=== PATIENT | female | born 1935 | race Caucasian/White ===

== ENCOUNTER 2021-04-16 12:29 | Inpatient (IN) ==
[2021-04-16] MEDS ORDERED: 0.9 % Sodium Chloride 1,000 ML IVC ONE (12:36)
[2021-04-16] MEDS ORDERED: Ampicillin/Sulbactam 3,000 MG in 0.9 % Sodium Chloride Mini Bag 100 ML IVPB ONE (12:39)
[2021-04-16] MEDS ORDERED: Tdap (Boostrix) Vaccine 0.5 ML SYRINGE IM ONE (12:39)
[2021-04-16] MEDS ORDERED: Clindamycin 600 MG/50 ML 600 MG/50 ML IV.SOLN IVPB ONE (12:42)
[2021-04-16] MEDS ORDERED: WATER IVPB ONE (12:43)
[2021-04-16] MEDS ORDERED: D5 IVPB ONE (12:43)
[2021-04-16] MEDS ORDERED: TRIMETH IVPB ONE (12:43)
[2021-04-16] MEDS ORDERED: SULFAMETHOXAZOLE IVPB ONE (12:43)
[2021-04-16 13:32] LABS: Basophils % 0.1 %; Hematocrit 36.6 % (35.3-44.9); Hemoglobin 11.7 g/dL (11.5-15.4); INR 1.1; Immature Granulocytes % 0.6 % (0-4); Lymphocytes # 0.5 K/mcL (0.6-4.6); Lymphocytes % 3.3 %; Mean Corpuscular Hemoglobin 29.8 pg (28.0-33.3); Mean Corpuscular Volume 93.1 fL (83.0-100.0); Mean Platelet Volume 10.3 fL (9.4-12.4); Monocytes # 0.9 K/mcL (0.0-1.3); Monocytes % 6.2 %; Neutrophils # 12.7 K/mcL (1.6-8.9); Platelet Count 114 K/mcL (140-400); Prothrombin Time 12.4 Seconds (9.4-12.1); Red Blood Count 3.93 M/mcL (3.82-4.97); Red Cell Distribution Width 12.6 % (11.5-14.5); Segmented Neutrophils % 89.8 %; White Blood Count 14.1 K/mcL (4.3-11.1)
[2021-04-16 13:32] LABS: Bilirubin,Urine Negative (Negative); Blood,Urine Small (Negative); Clarity,Urine Clear (Clear); Color,Urine Yellow (Yellow); Glucose,Urine (UA) Normal (Normal); Ketones,Urine 40 mg/dL (Negative); Leukocyte Esterase,Urine Negative (Negative); Nitrite,Urine Negative (Negative); Protein,Urine Negative (Neg-Trace); Specific Gravity,Urine 1.025 (1.010-1.025); Urobilinogen,Urine Normal (Normal)
[2021-04-16 13:35] LABS: Activated Partial Thrombo Time 32.4 Seconds (26.0-36.0)
[2021-04-16 13:38] LABS: Mucus,Urine Few per lpf (None-Few); Squamous Epithelial Cell,Urine Few per hpf (None-Few); WBC,Urine 0-3 per hpf (0-3)
[2021-04-16 13:39] LABS: Alanine Aminotransferase 26 Units/L (7-52); Albumin 4.3 g/dL (3.5-5.7); Albumin/Globulin Ratio 1.8 (1.1-2.2); Alkaline Phosphatase 50 Units/L (34-104); Aspartate Amino Transferase 30 Units/L (13-39); BUN/Creatinine Ratio 18 (6-26); Bilirubin,Direct 0.2 mg/dL (0.0-0.2); Bilirubin,Indirect 0.9 mg/dL (0.0-1.0); Bilirubin,Total 1.1 mg/dL (0.3-1.0); Blood Urea Nitrogen 13 mg/dL (8-23); Calcium 8.9 mg/dL (8.6-10.3); Carbon Dioxide 27 mEq/L (23-29); Chloride 103 mEq/L (98-107); Globulin 2.4 g/dL (2.4-3.5); Glucose 130 mg/dL (70-105); Magnesium 1.6 mg/dL (1.6-2.6); Osmolality,Calculated 288 (280-300); Potassium 3.6 mEq/L (3.5-5.1); Sodium 138 mEq/L (136-145); Total Protein 6.7 g/dL (6.4-8.9); Troponin I 0.03 ng/mL (< 0.04); eGFR For African Americans > 60 (> 60); eGFR For Non-African Americans > 60 (> 60)
[2021-04-16] MEDS ORDERED: Sulfamethoxazole/Trimeth 17 ML in D5% in Water 500 ML IVPB ONE (14:00)
[2021-04-16] MEDS ORDERED: Melatonin 3 MG TABLET PO PRN (15:47)
[2021-04-16] MEDS ORDERED: Naloxone 0.4 MG/ML INJ IVP PRN (15:47)
[2021-04-16] MEDS ORDERED: Ondansetron ODT 4 MG TAB.RAPDIS SL PRN (15:47)
[2021-04-16] MEDS ORDERED: Acetaminophen 325 MG TABLET PO PRN (15:47)
[2021-04-16] MEDS: 0.9 % Sodium Chloride 1,000 ML IVC SCH (17:31)
[2021-04-17] MEDS: 0.9 % Sodium Chloride 1,000 ML IVC SCH (00:13)
[2021-04-17] MEDS: Ampicillin/Sulbactam 3,000 MG in 0.9 % Sodium Chloride Mini Bag 100 ML IVPB SCH ×4 (00:14→17:28)
[2021-04-17 02:42] LABS: Hematocrit 29.3 % (35.3-44.9); Hemoglobin 9.5 g/dL (11.5-15.4); Immature Platelets 3.8 % (1.1-6.1); Mean Corpuscular HGB Conc 32.4 g/dL (31.6-35.5); Mean Corpuscular Hemoglobin 29.9 pg (28.0-33.3); Mean Corpuscular Volume 92.1 fL (83.0-100.0); Mean Platelet Volume 10.2 fL (9.4-12.4); Red Blood Count 3.18 M/mcL (3.82-4.97); Red Cell Distribution Width 12.6 % (11.5-14.5); White Blood Count 10.8 K/mcL (4.3-11.1)
[2021-04-17 02:53] LABS: BUN/Creatinine Ratio 14 (6-26); Blood Urea Nitrogen 10 mg/dL (8-23); Calcium 7.8 mg/dL (8.6-10.3); Carbon Dioxide 24 mEq/L (23-29); Chloride 107 mEq/L (98-107); Glucose 109 mg/dL (70-105); Osmolality,Calculated 286 (280-300); Potassium 3.1 mEq/L (3.5-5.1); Sodium 138 mEq/L (136-145); eGFR For African Americans > 60 (> 60); eGFR For Non-African Americans > 60 (> 60)
[2021-04-17] MEDS: Furosemide 20 MG TABLET PO SCH (09:50)
[2021-04-17] MEDS ORDERED: QUEtiapine Fumarate 25 MG TABLET PO SCH (17:12)
[2021-04-17] MEDS: QUEtiapine Fumarate 25 MG TABLET PO SCH (17:28)
[2021-04-17] MEDS ORDERED: diazePAM 10 MG/2 ML SYRINGE IVP ONE (20:37)
[2021-04-18] MEDS: Ampicillin/Sulbactam 3,000 MG in 0.9 % Sodium Chloride Mini Bag 100 ML IVPB SCH ×5 (00:05→23:34)
[2021-04-18] MEDS: QUEtiapine Fumarate 25 MG TABLET PO SCH ×2 (09:25→19:58)
[2021-04-18] MEDS: Furosemide 20 MG TABLET PO SCH (09:25)
[2021-04-18 11:47] LABS: Hemoglobin 9.9 g/dL (11.5-15.4); Red Cell Distribution Width 12.5 % (11.5-14.5)
[2021-04-18 11:48] LABS: Hematocrit 30.5 % (35.3-44.9); Mean Corpuscular HGB Conc 32.5 g/dL (31.6-35.5); Mean Corpuscular Hemoglobin 29.4 pg (28.0-33.3); Mean Corpuscular Volume 90.5 fL (83.0-100.0); Red Blood Count 3.37 M/mcL (3.82-4.97); White Blood Count 8.8 K/mcL (4.3-11.1)
[2021-04-18 12:00] LABS: BUN/Creatinine Ratio 17 (6-26); Blood Urea Nitrogen 11 mg/dL (8-23); Calcium 8.1 mg/dL (8.6-10.3); Carbon Dioxide 27 mEq/L (23-29); Chloride 105 mEq/L (98-107); Glucose 109 mg/dL (70-105); Osmolality,Calculated 286 (280-300); Potassium 3.5 mEq/L (3.5-5.1); Sodium 138 mEq/L (136-145); eGFR For African Americans > 60 (> 60); eGFR For Non-African Americans > 60 (> 60)
[2021-04-19] MEDS: Ampicillin/Sulbactam 3,000 MG in 0.9 % Sodium Chloride Mini Bag 100 ML IVPB SCH (05:38)
[2021-04-19 06:04] LABS: Hematocrit 31.4 % (35.3-44.9); Hemoglobin 10.3 g/dL (11.5-15.4); Mean Corpuscular HGB Conc 32.8 g/dL (31.6-35.5); Mean Corpuscular Hemoglobin 30.2 pg (28.0-33.3); Mean Corpuscular Volume 92.1 fL (83.0-100.0); Mean Platelet Volume 10.1 fL (9.4-12.4); Platelet Count 113 K/mcL (140-400); Red Blood Count 3.41 M/mcL (3.82-4.97); Red Cell Distribution Width 12.8 % (11.5-14.5); White Blood Count 6.7 K/mcL (4.3-11.1)
[2021-04-19] MEDS: QUEtiapine Fumarate 25 MG TABLET PO SCH (09:12)
[2021-04-19] MEDS: Furosemide 20 MG TABLET PO SCH (09:12)
[2021-04-19 11:17] VITALS: BP 112/63; PULSE 96; TEMP 97.8; O2SAT 95
== END 2021-04-19 14:10 | disposition home health service (06) | DRG 871 ==
LOC: EMEROOARM 12:29 → 3BNU 12:29 → SUATTDRO 17:58
PROVIDERS: ADMIT Internal Medicine; ATTEND Internal Medicine

== ENCOUNTER 2021-11-08 20:33 | Inpatient (IN) ==
[2021-11-08] MEDS ORDERED: Iopamidol - 370 500 ML MLS IVP ONE (21:24)
[2021-11-08] MEDS ORDERED: Morphine Sulfate 2 MG/ML SYRINGE IVP ONE (21:43)
[2021-11-08 22:11] LABS: Bilirubin,Urine Negative (Negative); Blood,Urine Negative (Negative); Clarity,Urine Clear (Clear); Color,Urine Yellow (Yellow); Glucose,Urine (UA) Normal (Normal); Hyaline Casts,Urine Few per lpf (None Seen); Ketones,Urine Negative (Negative); Leukocyte Esterase,Urine Large (Negative); Mucus,Urine Few per lpf (None-Few); Nitrite,Urine Negative (Negative); PH,Urine 6.5 pH Units (5.0-8.0); Protein,Urine Trace mg/dL (Neg-Trace); Renal Epithelial Cells,Urine Few per hpf (None-Few); Specific Gravity,Urine 1.021 (1.010-1.025); Squamous Epithelial Cell,Urine Few per hpf (None-Few); Transitional Epi Cells,Urine Few per hpf (None-Few); Urobilinogen,Urine Normal (Normal); WBC,Urine TNTC per hpf (0-3)
[2021-11-08 22:12] LABS: Basophils % 0.2 %; Eosinophils % 0.8 %; Hematocrit 33.1 % (35.3-44.9); Hemoglobin 10.9 g/dL (11.5-15.4); Immature Granulocytes % 0.6 % (0-4); Lymphocytes # 1.1 K/mcL (0.6-4.6); Lymphocytes % 21.9 %; Mean Corpuscular HGB Conc 32.9 g/dL (31.6-35.5); Mean Platelet Volume 9.6 fL (9.4-12.4); Monocytes # 0.5 K/mcL (0.0-1.3); Monocytes % 9.5 %; Neutrophils # 3.2 K/mcL (1.6-8.9); Platelet Count 123 K/mcL (140-400); Red Blood Count 3.52 M/mcL (3.82-4.97); Red Cell Distribution Width 12.9 % (11.5-14.5); White Blood Count 4.8 K/mcL (4.3-11.1)
[2021-11-08 22:20] LABS: INR 1.1; Prothrombin Time 12.2 Seconds (9.4-12.1)
[2021-11-08 22:29] LABS: BUN/Creatinine Ratio 20 (6-26); Blood Urea Nitrogen 19 mg/dL (8-23); Calcium 8.8 mg/dL (8.6-10.3); Carbon Dioxide 29 mEq/L (23-29); Chloride 107 mEq/L (98-107); Glucose 112 mg/dL (70-105); Osmolality,Calculated 295 (280-300); Potassium 3.7 mEq/L (3.5-5.1); Sodium 141 mEq/L (136-145); Troponin I < 0.03 ng/mL (< 0.04)
[2021-11-08 22:43] LABS: Thyroid Stimulating Hormone 1.403 mcIU/mL (0.340-5.600)
[2021-11-09] MEDS ORDERED: cefTRIAXone 1,000 MG in 0.9 % Sodium Chloride 10 ML IVP ONE (00:47)
[2021-11-09] MEDS ORDERED: Naloxone 0.4 MG/ML INJ IVP PRN ×2 (02:14→14:51)
[2021-11-09] MEDS ORDERED: Ondansetron 4 MG/2 ML VIAL IVP PRN ×3 (02:19→14:51)
[2021-11-09] MEDS ORDERED: Melatonin 3 MG TABLET PO PRN (02:19)
[2021-11-09] MEDS ORDERED: 0.9 % Sodium Chloride 1,000 ML IVC SCH (02:30)
[2021-11-09] MEDS ORDERED: cefTRIAXone 1,000 MG in 0.9 % Sodium Chloride Mini Bag 100 ML IVPB SCH (09:00)
[2021-11-09] MEDS ORDERED: *HR* OxyCODONE Immed Rel 5 MG TABLET PO PRN (10:41)
[2021-11-09] MEDS ORDERED: *HR* FentaNYL (PF) 100 MCG/2 ML VIAL IVP PRN (10:41)
[2021-11-09] MEDS ORDERED: *HR* HYDROmorphone PF 0.5 MG/0.5 ML SYRINGE IVP PRN (10:41)
[2021-11-09] MEDS ORDERED: *HR* OxyCODONE Immed Rel 5 MG TABLET PO ONE ×2 (10:41→12:45)
[2021-11-09] MEDS ORDERED: CeFAZolin Syr 2,000MG/20 ML 2,000 MG/20 ML SYRINGE IVPB ONE (12:26)
[2021-11-09] MEDS ORDERED: Ringers Solution, Lactated 1,000 ML IVC SCH ×2 (12:30→14:51)
[2021-11-09] MEDS ORDERED: ROPIVACAINE/PF/NS 0.25% 1 EACH SYRINGE INTRAART ONE ×2 (12:32→12:58)
[2021-11-09] MEDS ORDERED: *HR* Rocuronium Bromide 50 MG/5 ML VIAL ONE (14:20)
[2021-11-09] MEDS ORDERED: Lidocaine -MPF 2% 5 ML VIAL ONE (14:20)
[2021-11-09] MEDS ORDERED: *HR* FentaNYL (PF) 100 MCG/2 ML VIAL ONE (14:20)
[2021-11-09] MEDS ORDERED: Lidocaine HCL 4 ML Topical Solution (Laryng-O-Jet Kit Sterile Pak) TP ONE (14:20)
[2021-11-09] MEDS ORDERED: *HR* Succinylcholine 200 MG/10 ML VIAL IVP ONE (14:20)
[2021-11-09] MEDS ORDERED: Ondansetron 4 MG/2 ML VIAL ONE (14:20)
[2021-11-09] MEDS ORDERED: *HR* Propofol 200 MG/20 ML VIAL IVP ONE (14:20)
[2021-11-09] MEDS ORDERED: Vancomycin 1,000 MG VIAL ONE (14:30)
[2021-11-09] MEDS ORDERED: TOTAL JOINT MIXTURE (100ML) INTRAART ONE (14:45)
[2021-11-09] MEDS ORDERED: Povidone-Iodine 45 ML, Sodium Chloride IRRigation 1,000 ML IR ONE (14:45)
[2021-11-09] MEDS ORDERED: Sennosides 8.6 MG TABLET PO PRN (14:51)
[2021-11-09] MEDS ORDERED: *HR* Promethazine 25 MG/ML VIAL IM PRN (14:51)
[2021-11-09] MEDS ORDERED: MOM Conc 10 ML UD.LIQ PO PRN (14:51)
[2021-11-09] MEDS ORDERED: Tranexamic Acid 1,000 MG/10 ML VIAL ONE (15:07)
[2021-11-09] MEDS ORDERED: EPHEDrine sulfate 50 MG/10 ML VIAL IVP ONE (15:43)
[2021-11-09] MEDS ORDERED: Sugammadex Sodium 200 MG/2 ML VIAL IV ONE (15:48)
[2021-11-09] MEDS: Ascorbic Acid 500 MG TABLET PO SCH (17:58)
[2021-11-09] MEDS: CeFAZolin 2 GM/120 ML BAG IVPB SCH (19:42)
[2021-11-10 05:32] LABS: Eosinophils % 0.1 %; Hematocrit 26.1 % (35.3-44.9); Immature Granulocytes % 0.3 % (0-4); Lymphocytes # 0.6 K/mcL (0.6-4.6); Lymphocytes % 8.6 %; Mean Corpuscular HGB Conc 32.6 g/dL (31.6-35.5); Mean Corpuscular Hemoglobin 30.6 pg (28.0-33.3); Mean Corpuscular Volume 93.9 fL (83.0-100.0); Mean Platelet Volume 9.7 fL (9.4-12.4); Monocytes # 0.6 K/mcL (0.0-1.3); Monocytes % 9.3 %; Neutrophils # 5.5 K/mcL (1.6-8.9); Platelet Count 106 K/mcL (140-400); Red Blood Count 2.78 M/mcL (3.82-4.97); Red Cell Distribution Width 12.8 % (11.5-14.5); Segmented Neutrophils % 81.7 %; White Blood Count 6.8 K/mcL (4.3-11.1)
[2021-11-10] MEDS: CeFAZolin 2 GM/120 ML BAG IVPB SCH (05:35)
[2021-11-10] MEDS: *HR* OxyCODONE Immed Rel 5 MG TABLET PO PRN ×2 (05:36→09:37)
[2021-11-10 06:05] LABS: Calcium 8.1 mg/dL (8.6-10.3); Potassium 3.8 mEq/L (3.5-5.1)
[2021-11-10 06:08] LABS: Hemoglobin 8.5 g/dL (11.5-15.4)
[2021-11-10] MEDS: Multivit/Ca/Min/Fe/FA 1 TAB TABLET PO SCH (09:26)
[2021-11-10] MEDS: Ascorbic Acid 500 MG TABLET PO SCH ×2 (09:26→15:51)
[2021-11-10] MEDS: Aspirin Enteric Coated 81 MG Tablet PO SCH ×2 (14:21→20:17)
[2021-11-11] MEDS ORDERED: Ringers Solution, Lactated 250 ML IVC PRN (03:19)
[2021-11-11 04:38] LABS: Hemoglobin 7.4 g/dL (11.5-15.4); Mean Corpuscular Volume 93.4 fL (83.0-100.0)
[2021-11-11 04:40] LABS: Eosinophils # 0.1 K/mcL (0.0-0.6); Eosinophils % 0.9 %; Hematocrit 22.5 % (35.3-44.9); Immature Granulocytes % 0.5 % (0-4); Immature Platelets 3.2 % (1.1-6.1); Lymphocytes # 0.6 K/mcL (0.6-4.6); Lymphocytes % 10.8 %; Mean Corpuscular HGB Conc 32.9 g/dL (31.6-35.5); Mean Corpuscular Hemoglobin 30.7 pg (28.0-33.3); Mean Platelet Volume 9.8 fL (9.4-12.4); Monocytes # 0.6 K/mcL (0.0-1.3); Monocytes % 10.1 %; Neutrophils # 4.4 K/mcL (1.6-8.9); Red Blood Count 2.41 M/mcL (3.82-4.97); Segmented Neutrophils % 77.7 %; White Blood Count 5.7 K/mcL (4.3-11.1)
[2021-11-11 04:43] LABS: Platelet Count 90 K/mcL (140-400)
[2021-11-11 04:56] LABS: Potassium 3.4 mEq/L (3.5-5.1)
[2021-11-11] MEDS ORDERED: 0.9 % Sodium Chloride 250 ML ONE (06:26)
[2021-11-11] MEDS ORDERED: NON-FORMULARY MEDICATION 1 EACH EACH (Cyanocobalamin (Vitamin B-12) [Vitamin B-12] 100 MCG PO SCH (09:00)
[2021-11-11] MEDS ORDERED: NON-FORMULARY MEDICATION 1 EACH EACH (Vit A/Vit C/Vit E/Zinc/Copper [Preservision Areds Ta PO SCH (09:00)
[2021-11-11] MEDS: Ascorbic Acid 500 MG TABLET PO SCH (09:23)
[2021-11-11] MEDS: Aspirin Enteric Coated 81 MG Tablet PO SCH (09:23)
[2021-11-11] MEDS: Multivit/Ca/Min/Fe/FA 1 TAB TABLET PO SCH (09:23)
[2021-11-11 12:16] LABS: Hematocrit 27.2 % (35.3-44.9); Hemoglobin 8.9 g/dL (11.5-15.4)
[2021-11-11] MEDS ORDERED: Potassium Effervescent 25 MEQ TABLET.EFF PO ONE (12:29)
[2021-11-11] MEDS ORDERED: Pfizer COVID-19 VAC,BIVALENT,MRNA 30 MCG/0.3 ML VIAL IM ONE (18:00)
[2021-11-11 18:11] VITALS: TEMP 97.9; O2SAT 92
[2021-11-11 18:44] LABS: Influenza A PCR Negative (Negative); Influenza B PCR Negative (Negative); Resp. Syncytial Virus PCR Negative (Negative)
[2021-11-11 18:46] LABS: SARS-CoV-2 by PCR (In House) Negative (Negative)
[2021-11-11 19:56] VITALS: BP 122/68; PULSE 81
[2021-11-11] MEDS ORDERED: Latanoprost 2.5 ML BOTTLE BOTH EYES SCH (21:00)
[2021-11-11] MEDS ORDERED: Melatonin 3 MG TABLET PO SCH (21:00)
== END 2021-11-11 19:50 | DRG 522 ==
LOC: EMEROOARM 20:33 → 4WAOSI 20:33 → SUATTDRO 11-09 09:51
PROVIDERS: ADMIT Internal Medicine; ATTEND Hospitalist

== ENCOUNTER 2021-11-16 16:14 | Inpatient (IN) ==
[2021-11-16] MEDS ORDERED: 0.9 % Sodium Chloride 1,000 ML ONE (16:24)
[2021-11-16] MEDS ORDERED: Iopamidol - 370 500 ML MLS IVP ONE (16:33)
[2021-11-16 16:35] LABS: ABG Base Excess 2 mEq/L (-2 to 3); ABG HCO3 25 mEq/L (21-27); ABG Oxygen Saturation 98 % (95-98); ABG PCO2 32 mmHg (35-45); ABG PO2 86 mmHg (85-104); ABG TCO2 26 mEq/L (20-26)
[2021-11-16] MEDS ORDERED: 0.9 % Sodium Chloride 1,000 ML IV ONE (16:41)
[2021-11-16 17:13] LABS: Hematocrit 29.5 % (35.3-44.9); Hemoglobin 9.5 g/dL (11.5-15.4); Lymphocytes % 19.4 %; Mean Corpuscular HGB Conc 32.2 g/dL (31.6-35.5); Mean Corpuscular Hemoglobin 30.2 pg (28.0-33.3); Mean Corpuscular Volume 93.7 fL (83.0-100.0); Mean Platelet Volume 9.2 fL (9.4-12.4); Monocytes % 7.2 %; Platelet Count 244 K/mcL (140-400); Red Blood Count 3.15 M/mcL (3.82-4.97); Red Cell Distribution Width 13.3 % (11.5-14.5); Segmented Neutrophils % 69.7 %; White Blood Count 9.7 K/mcL (4.3-11.1)
[2021-11-16 17:14] LABS: Basophils % 0.2 %; Eosinophils # 0.1 K/mcL (0.0-0.6); Eosinophils % 0.5 %; Lymphocytes # 1.9 K/mcL (0.6-4.6); Monocytes # 0.7 K/mcL (0.0-1.3); Neutrophils # 6.7 K/mcL (1.6-8.9)
[2021-11-16 17:21] LABS: INR 1.2; Prothrombin Time 13.4 Seconds (9.4-12.1)
[2021-11-16 17:24] LABS: Activated Partial Thrombo Time 25.5 Seconds (26.0-36.0)
[2021-11-16] MEDS ORDERED: 0.9 % Sodium Chloride 500 ML IVC PRN (17:25)
[2021-11-16 17:35] LABS: Albumin 3.1 g/dL (3.5-5.7); Albumin/Globulin Ratio 1.1 (1.1-2.2); Bilirubin,Total 1.3 mg/dL (0.3-1.0); Globulin 2.7 g/dL (2.4-3.5); Potassium 3.8 mEq/L (3.5-5.1); Total Protein 5.8 g/dL (6.4-8.9)
[2021-11-16 17:43] LABS: Troponin I 0.14 ng/mL (< 0.04)
[2021-11-16] MEDS ORDERED: Naloxone 0.4 MG/ML INJ IVP PRN (20:28)
[2021-11-16] MEDS ORDERED: *HR* Heparin 5,000 UNIT/ML VIAL IVP ONE (20:35)
[2021-11-16] MEDS ORDERED: *HR* Heparin 5,000 UNIT/ML VIAL IVP PRN ×2 (20:35)
[2021-11-16] MEDS ORDERED: Amiodarone Premix 150 MG/100 ML BAG IVPB ONE (21:09)
[2021-11-16] MEDS ORDERED: Amiodarone Premix 360 MG/200 ML BAG IVC ONE (21:09)
[2021-11-16 21:15] LABS: Bacteria,Urine Few per hpf (None-Few); Bilirubin,Urine Negative (Negative); Blood,Urine Negative (Negative); Clarity,Urine Clear (Clear); Color,Urine Light-Yellow (Yellow); Glucose,Urine (UA) Normal (Normal); Hyaline Casts,Urine Moderate per lpf (None Seen); Ketones,Urine Negative (Negative); Leukocyte Esterase,Urine Negative (Negative); Mucus,Urine Few per lpf (None-Few); Nitrite,Urine Negative (Negative); PH,Urine 6.5 pH Units (5.0-8.0); Protein,Urine 30 mg/dL (Neg-Trace); RBC,Urine 0-3 per hpf (0-3); Specific Gravity,Urine 1.016 (1.010-1.025); Squamous Epithelial Cell,Urine Few per hpf (None-Few); Urobilinogen,Urine Normal (Normal); WBC,Urine 0-3 per hpf (0-3)
[2021-11-16 22:12] LABS: Heparin anti-factor XA UFH < 0.04 IU/mL (0.30-0.70)
[2021-11-16 22:17] LABS: D-Dimer 29960 ng/mLFEU (0-500)
[2021-11-16] MEDS: Heparin 25,000UNIT/250ML 1/2NS 25,000 UNIT/250 ML IV.SOLN IVC SCH (22:20)
[2021-11-17] MEDS ORDERED: Amiodarone Premix 360 MG/200 ML BAG IVC SCH (03:16)
[2021-11-17 04:40] LABS: Basophils % 0.1 %; Eosinophils % 0.3 %; Hematocrit 26.8 % (35.3-44.9); Hemoglobin 8.6 g/dL (11.5-15.4); Lymphocytes # 0.6 K/mcL (0.6-4.6); Mean Corpuscular HGB Conc 32.1 g/dL (31.6-35.5); Mean Corpuscular Hemoglobin 29.7 pg (28.0-33.3); Mean Corpuscular Volume 92.4 fL (83.0-100.0); Monocytes # 0.6 K/mcL (0.0-1.3); Neutrophils # 6.6 K/mcL (1.6-8.9); Platelet Count 205 K/mcL (140-400); Red Cell Distribution Width 13.2 % (11.5-14.5); Segmented Neutrophils % 83.6 %; White Blood Count 7.8 K/mcL (4.3-11.1)
[2021-11-17 04:59] LABS: % Iron Saturation 11 % (15-50); Iron 27 mcg/dL (50-170); Transferrin 176 mg/dL (203-362)
[2021-11-17 05:01] LABS: Albumin 2.9 g/dL (3.5-5.7); Albumin/Globulin Ratio 1.2 (1.1-2.2); Bilirubin,Total 0.8 mg/dL (0.3-1.0); Calcium 8.1 mg/dL (8.6-10.3); Globulin 2.5 g/dL (2.4-3.5); Magnesium 1.7 mg/dL (1.6-2.6); Phosphorous 3.4 mg/dL (2.7-4.5); Potassium 3.4 mEq/L (3.5-5.1); Total Protein 5.4 g/dL (6.4-8.9)
[2021-11-17 05:16] LABS: Ferritin 271 ng/mL (10-120)
[2021-11-17 07:09] LABS: Troponin I 3.15 ng/mL (< 0.04)
[2021-11-17] MEDS: Metoprolol XL (24 HR) Succ 25 MG TAB.ER.24H PO SCH (11:12)
[2021-11-17] MEDS: Aspirin Enteric Coated 81 MG Tablet PO SCH (11:12)
[2021-11-17] MEDS ORDERED: Artificial Tears SOLN 15 ML BOTTLE BOTH EYES PRN (13:43)
[2021-11-17] MEDS: Acetaminophen 325 MG TABLET PO SCH ×2 (17:17→23:59)
[2021-11-17] MEDS: Mirtazapine 15 MG TABLET PO SCH (20:20)
[2021-11-17] MEDS: Melatonin 3 MG TABLET PO SCH (20:20)
[2021-11-18 03:05] LABS: Basophils % 0.2 %; Eosinophils # 0.1 K/mcL (0.0-0.6); Eosinophils % 1.8 %; Hematocrit 26.7 % (35.3-44.9); Hemoglobin 8.6 g/dL (11.5-15.4); Immature Granulocytes % 1.5 % (0-4); Lymphocytes % 15.8 %; Mean Corpuscular HGB Conc 32.2 g/dL (31.6-35.5); Mean Corpuscular Hemoglobin 30.8 pg (28.0-33.3); Mean Corpuscular Volume 95.7 fL (83.0-100.0); Mean Platelet Volume 9.1 fL (9.4-12.4); Monocytes # 0.5 K/mcL (0.0-1.3); Monocytes % 7.9 %; Neutrophils # 4.4 K/mcL (1.6-8.9); Platelet Count 224 K/mcL (140-400); Red Blood Count 2.79 M/mcL (3.82-4.97); Red Cell Distribution Width 13.5 % (11.5-14.5); Segmented Neutrophils % 72.8 %; White Blood Count 6.1 K/mcL (4.3-11.1)
[2021-11-18 03:29] LABS: Calcium 8.3 mg/dL (8.6-10.3); Potassium 3.6 mEq/L (3.5-5.1)
[2021-11-18] MEDS: Heparin 25,000UNIT/250ML 1/2NS 25,000 UNIT/250 ML IV.SOLN IVC SCH ×2 (05:04→19:52)
[2021-11-18] MEDS: Acetaminophen 325 MG TABLET PO SCH (05:04)
[2021-11-18] MEDS: Metoprolol XL (24 HR) Succ 25 MG TAB.ER.24H PO SCH (08:44)
[2021-11-18] MEDS: Furosemide 20 MG TABLET PO SCH (08:44)
[2021-11-18] MEDS: VITAMIN E PO SCH (08:45)
[2021-11-18] MEDS: ASCORBIC ACID PO SCH (08:45)
[2021-11-18] MEDS: ZINC PO SCH (08:45)
[2021-11-18] MEDS: COPPER PO SCH (08:45)
[2021-11-18] MEDS: VITAMIN A PO SCH (08:45)
[2021-11-18] MEDS: Cyanocobalamin (B-12) 1,000 MCG TABLET PO SCH (08:45)
[2021-11-18] MEDS: Aspirin Enteric Coated 81 MG Tablet PO SCH (08:45)
[2021-11-18] MEDS ORDERED: Acetaminophen 325 MG TABLET PO PRN (11:28)
[2021-11-18] MEDS: Mirtazapine 15 MG TABLET PO SCH (21:57)
[2021-11-18] MEDS: Melatonin 3 MG TABLET PO SCH (21:57)
[2021-11-19 03:57] LABS: Basophils % 0.2 %; Hematocrit 29.2 % (35.3-44.9); Hemoglobin 9.5 g/dL (11.5-15.4); Immature Granulocytes % 1.1 % (0-4); Lymphocytes # 0.7 K/mcL (0.6-4.6); Lymphocytes % 7.3 %; Mean Corpuscular HGB Conc 32.5 g/dL (31.6-35.5); Mean Corpuscular Hemoglobin 30.5 pg (28.0-33.3); Mean Corpuscular Volume 93.9 fL (83.0-100.0); Monocytes % 7.5 %; Neutrophils # 8.3 K/mcL (1.6-8.9); Platelet Count 274 K/mcL (140-400); Red Blood Count 3.11 M/mcL (3.82-4.97); Red Cell Distribution Width 13.6 % (11.5-14.5); Segmented Neutrophils % 83.9 %
[2021-11-19 04:04] LABS: Monocytes # 0.7 K/mcL (0.0-1.3); White Blood Count 9.9 K/mcL (4.3-11.1)
[2021-11-19 04:15] LABS: Calcium 8.5 mg/dL (8.6-10.3); Magnesium 2.2 mg/dL (1.6-2.6); Potassium 3.4 mEq/L (3.5-5.1)
[2021-11-19] MEDS ORDERED: *HR* Heparin 5,000 UNIT/ML VIAL IVP PRN ×2 (08:28→08:29)
[2021-11-19] MEDS: Heparin 25,000UNIT/250ML 1/2NS 25,000 UNIT/250 ML IV.SOLN IVC SCH (08:33)
[2021-11-19] MEDS: VITAMIN A PO SCH (10:10)
[2021-11-19] MEDS: ZINC PO SCH (10:10)
[2021-11-19] MEDS: COPPER PO SCH (10:10)
[2021-11-19] MEDS: VITAMIN E PO SCH (10:10)
[2021-11-19] MEDS: ASCORBIC ACID PO SCH (10:10)
[2021-11-19] MEDS: Cyanocobalamin (B-12) 1,000 MCG TABLET PO SCH (10:10)
[2021-11-19] MEDS: Aspirin Enteric Coated 81 MG Tablet PO SCH (10:10)
[2021-11-19] MEDS ORDERED: 0.9 % Sodium Chloride 1,000 ML ONE ×2 (10:35→11:03)
[2021-11-19] MEDS ORDERED: *HR* FentaNYL (PF) 100 MCG/2 ML VIAL ONE (10:35)
[2021-11-19] MEDS ORDERED: *HR* Heparin 10,000 UNIT/10 ML VIAL ONE (10:35)
[2021-11-19] MEDS ORDERED: *HR* Midazolam HCl 2 MG/2 ML VIAL ONE (10:35)
[2021-11-19] MEDS ORDERED: Nitroglycerin 1,000 MCG/5 ML VIAL IV ONE (10:36)
[2021-11-19] MEDS ORDERED: Iopamidol - 370 200 ML INFUS..BTL ONE (10:36)
[2021-11-19] MEDS ORDERED: Heparin 1,000 UNITS/500 mL 500 ML ONE (10:36)
[2021-11-19] MEDS: Furosemide 20 MG TABLET PO SCH (14:17)
[2021-11-19] MEDS: Metoprolol XL (24 HR) Succ 25 MG TAB.ER.24H PO SCH (14:17)
[2021-11-19] MEDS: Melatonin 3 MG TABLET PO SCH (20:38)
[2021-11-19] MEDS: Mirtazapine 15 MG TABLET PO SCH (20:38)
[2021-11-20 04:40] LABS: Basophils % 0.1 %; Eosinophils % 0.5 %; Hematocrit 26.6 % (35.3-44.9); Hemoglobin 8.4 g/dL (11.5-15.4); Immature Granulocytes % 0.7 % (0-4); Lymphocytes # 0.9 K/mcL (0.6-4.6); Mean Corpuscular HGB Conc 31.6 g/dL (31.6-35.5); Mean Corpuscular Hemoglobin 29.8 pg (28.0-33.3); Mean Corpuscular Volume 94.3 fL (83.0-100.0); Mean Platelet Volume 9.2 fL (9.4-12.4); Monocytes # 0.7 K/mcL (0.0-1.3); Monocytes % 8.3 %; Platelet Count 309 K/mcL (140-400); Red Blood Count 2.82 M/mcL (3.82-4.97); Red Cell Distribution Width 13.6 % (11.5-14.5); Segmented Neutrophils % 80.4 %; White Blood Count 8.7 K/mcL (4.3-11.1)
[2021-11-20 04:48] LABS: Calcium 8.6 mg/dL (8.6-10.3); Magnesium 2.1 mg/dL (1.6-2.6); Potassium 3.2 mEq/L (3.5-5.1)
[2021-11-20] MEDS: Aspirin Enteric Coated 81 MG Tablet PO SCH (08:50)
[2021-11-20] MEDS: Metoprolol XL (24 HR) Succ 25 MG TAB.ER.24H PO SCH (08:51)
[2021-11-20] MEDS: Cyanocobalamin (B-12) 1,000 MCG TABLET PO SCH (08:51)
[2021-11-20] MEDS: Furosemide 20 MG TABLET PO SCH (08:53)
[2021-11-20] MEDS: Heparin 25,000UNIT/250ML 1/2NS 25,000 UNIT/250 ML IV.SOLN IVC SCH (14:13)
[2021-11-20] MEDS: *HR* Heparin 5,000 UNIT/ML VIAL SQ SCH (18:04)
[2021-11-20] MEDS: Mirtazapine 15 MG TABLET PO SCH (20:09)
[2021-11-20] MEDS: Melatonin 3 MG TABLET PO SCH (20:10)
[2021-11-21] MEDS ORDERED: *HR* LORazepam 2 MG/ML VIAL IVP ONE (00:20)
[2021-11-21 01:57] LABS: Basophils % 0.1 %; Eosinophils # 0.1 K/mcL (0.0-0.6); Eosinophils % 1.2 %; Hematocrit 26.1 % (35.3-44.9); Hemoglobin 8.2 g/dL (11.5-15.4); Immature Granulocytes % 1.3 % (0-4); Lymphocytes % 11.8 %; Mean Corpuscular HGB Conc 31.4 g/dL (31.6-35.5); Mean Corpuscular Hemoglobin 29.7 pg (28.0-33.3); Mean Corpuscular Volume 94.6 fL (83.0-100.0); Mean Platelet Volume 9.1 fL (9.4-12.4); Monocytes # 0.6 K/mcL (0.0-1.3); Monocytes % 7.3 %; Neutrophils # 6.4 K/mcL (1.6-8.9); Platelet Count 313 K/mcL (140-400); Red Blood Count 2.76 M/mcL (3.82-4.97); Red Cell Distribution Width 13.6 % (11.5-14.5); Segmented Neutrophils % 78.3 %; White Blood Count 8.2 K/mcL (4.3-11.1)
[2021-11-21 02:04] LABS: Calcium 8.2 mg/dL (8.6-10.3); Magnesium 1.9 mg/dL (1.6-2.6); Potassium 3.6 mEq/L (3.5-5.1)
[2021-11-21] MEDS: *HR* Heparin 5,000 UNIT/ML VIAL SQ SCH ×2 (04:56→17:51)
[2021-11-21] MEDS: Metoprolol XL (24 HR) Succ 25 MG TAB.ER.24H PO SCH (12:03)
[2021-11-21] MEDS: Cyanocobalamin (B-12) 1,000 MCG TABLET PO SCH (12:04)
[2021-11-21] MEDS: Furosemide 20 MG TABLET PO SCH (12:04)
[2021-11-21] MEDS: *HR* OxyCODONE Immed Rel 5 MG TABLET PO PRN ×2 (12:04→20:41)
[2021-11-21] MEDS: Aspirin Enteric Coated 81 MG Tablet PO SCH (12:04)
[2021-11-21] MEDS: Melatonin 3 MG TABLET PO SCH (20:41)
[2021-11-21] MEDS: Mirtazapine 15 MG TABLET PO SCH (20:41)
[2021-11-22] MEDS: *HR* OxyCODONE Immed Rel 5 MG TABLET PO PRN (05:15)
[2021-11-22] MEDS: *HR* Heparin 5,000 UNIT/ML VIAL SQ SCH ×2 (05:15→18:05)
[2021-11-22 05:31] LABS: Basophils % 0.1 %; Eosinophils # 0.2 K/mcL (0.0-0.6); Eosinophils % 2.3 %; Hematocrit 24.6 % (35.3-44.9); Hemoglobin 7.8 g/dL (11.5-15.4); Immature Granulocytes % 1.7 % (0-4); Lymphocytes # 0.9 K/mcL (0.6-4.6); Lymphocytes % 11.2 %; Mean Corpuscular HGB Conc 31.7 g/dL (31.6-35.5); Mean Corpuscular Hemoglobin 29.8 pg (28.0-33.3); Mean Corpuscular Volume 93.9 fL (83.0-100.0); Mean Platelet Volume 9.4 fL (9.4-12.4); Monocytes # 0.7 K/mcL (0.0-1.3); Monocytes % 8.5 %; Neutrophils # 5.9 K/mcL (1.6-8.9); Platelet Count 306 K/mcL (140-400); Red Blood Count 2.62 M/mcL (3.82-4.97); Red Cell Distribution Width 13.5 % (11.5-14.5); Segmented Neutrophils % 76.2 %; White Blood Count 7.8 K/mcL (4.3-11.1)
[2021-11-22 05:43] LABS: Calcium 8.1 mg/dL (8.6-10.3); Magnesium 1.8 mg/dL (1.6-2.6); Potassium 3.7 mEq/L (3.5-5.1)
[2021-11-22] MEDS: Metoprolol XL (24 HR) Succ 25 MG TAB.ER.24H PO SCH (11:09)
[2021-11-22] MEDS: Cyanocobalamin (B-12) 1,000 MCG TABLET PO SCH (11:09)
[2021-11-22] MEDS: Furosemide 20 MG TABLET PO SCH (11:09)
[2021-11-22] MEDS: Aspirin Enteric Coated 81 MG Tablet PO SCH (11:09)
[2021-11-22] MEDS ORDERED: Cyanocobalamin (B-12) 1,000 MCG/ML VIAL SQ ONE (13:55)
[2021-11-22] MEDS ORDERED: Iron Sucrose Complex 250 MG in 0.9 % Sodium Chloride 250 ML IVPB ONE (13:55)
[2021-11-22] MEDS: Melatonin 3 MG TABLET PO SCH (22:18)
[2021-11-22] MEDS: Mirtazapine 15 MG TABLET PO SCH (22:18)
[2021-11-23 02:16] LABS: Basophils % 0.3 %; Eosinophils # 0.2 K/mcL (0.0-0.6); Eosinophils % 2.1 %; Hematocrit 24.5 % (35.3-44.9); Immature Granulocytes % 1.8 % (0-4); Lymphocytes # 0.9 K/mcL (0.6-4.6); Lymphocytes % 11.3 %; Mean Corpuscular HGB Conc 32.7 g/dL (31.6-35.5); Mean Corpuscular Hemoglobin 30.5 pg (28.0-33.3); Mean Corpuscular Volume 93.5 fL (83.0-100.0); Mean Platelet Volume 8.9 fL (9.4-12.4); Monocytes # 0.7 K/mcL (0.0-1.3); Monocytes % 8.9 %; Neutrophils # 6.1 K/mcL (1.6-8.9); Platelet Count 269 K/mcL (140-400); Red Blood Count 2.62 M/mcL (3.82-4.97); Red Cell Distribution Width 13.7 % (11.5-14.5); Segmented Neutrophils % 75.6 %
[2021-11-23 02:40] LABS: Calcium 8.2 mg/dL (8.6-10.3); Magnesium 1.7 mg/dL (1.6-2.6); Phosphorous 3.2 mg/dL (2.7-4.5); Potassium 3.8 mEq/L (3.5-5.1)
[2021-11-23] MEDS: *HR* Heparin 5,000 UNIT/ML VIAL SQ SCH ×2 (07:26→17:57)
[2021-11-23] MEDS: Aspirin Enteric Coated 81 MG Tablet PO SCH (08:38)
[2021-11-23] MEDS: Cyanocobalamin (B-12) 1,000 MCG TABLET PO SCH (08:38)
[2021-11-23] MEDS: Furosemide 20 MG TABLET PO SCH (08:38)
[2021-11-23] MEDS: Metoprolol XL (24 HR) Succ 25 MG TAB.ER.24H PO SCH (08:39)
[2021-11-23] MEDS ORDERED: *HR* LORazepam 0.5 MG TABLET PO PRN (17:56)
[2021-11-23] MEDS ORDERED: Nitroglycerin 0.4 MG TAB.SUBL SL PRN (17:56)
[2021-11-23] MEDS: Mirtazapine 15 MG TABLET PO SCH (20:32)
[2021-11-23] MEDS: Melatonin 3 MG TABLET PO SCH (20:32)
[2021-11-23] MEDS: Latanoprost 2.5 ML BOTTLE BOTH EYES SCH (20:42)
[2021-11-23] MEDS: *HR* OxyCODONE Immed Rel 5 MG TABLET PO PRN (22:20)
[2021-11-24 02:33] LABS: Basophils % 0.1 %; Eosinophils # 0.1 K/mcL (0.0-0.6); Eosinophils % 1.3 %; Hematocrit 25.1 % (35.3-44.9); Hemoglobin 8.1 g/dL (11.5-15.4); Immature Granulocytes % 1.8 % (0-4); Lymphocytes # 1.2 K/mcL (0.6-4.6); Lymphocytes % 11.4 %; Mean Corpuscular HGB Conc 32.3 g/dL (31.6-35.5); Mean Corpuscular Hemoglobin 30.3 pg (28.0-33.3); Mean Platelet Volume 9.2 fL (9.4-12.4); Monocytes % 9.2 %; Neutrophils # 8.2 K/mcL (1.6-8.9); Platelet Count 286 K/mcL (140-400); Red Blood Count 2.67 M/mcL (3.82-4.97); Red Cell Distribution Width 13.9 % (11.5-14.5); Segmented Neutrophils % 76.2 %; White Blood Count 10.7 K/mcL (4.3-11.1)
[2021-11-24 02:50] LABS: Calcium 8.5 mg/dL (8.6-10.3); Magnesium 1.7 mg/dL (1.6-2.6); Potassium 3.9 mEq/L (3.5-5.1)
[2021-11-24 03:28] LABS: Estimated Average Glucose 108 mg/dl; Hemoglobin A1C 5.4 %
[2021-11-24] MEDS: *HR* Heparin 5,000 UNIT/ML VIAL SQ SCH ×2 (05:27→18:05)
[2021-11-24] MEDS: Metoprolol XL (24 HR) Succ 25 MG TAB.ER.24H PO SCH (09:42)
[2021-11-24] MEDS: Furosemide 20 MG TABLET PO SCH (09:42)
[2021-11-24] MEDS: Cyanocobalamin (B-12) 1,000 MCG TABLET PO SCH (09:43)
[2021-11-24] MEDS: Aspirin Enteric Coated 81 MG Tablet PO SCH (09:43)
[2021-11-24] MEDS ORDERED: *HR* FentaNYL (PF) 100 MCG/2 ML VIAL ONE (15:17)
[2021-11-24] MEDS ORDERED: *HR* Midazolam HCl 2 MG/2 ML VIAL ONE (15:17)
[2021-11-24] MEDS ORDERED: 0.9 % Sodium Chloride 500 ML ONE (15:18)
[2021-11-24] MEDS ORDERED: 0.9 % Sodium Chloride 1,000 ML ONE (15:23)
[2021-11-24] MEDS: Mirtazapine 15 MG TABLET PO SCH (19:45)
[2021-11-24] MEDS: Melatonin 3 MG TABLET PO SCH (19:54)
[2021-11-24] MEDS: Latanoprost 2.5 ML BOTTLE BOTH EYES SCH (19:56)
[2021-11-25 00:30] VITALS: O2SAT 97
[2021-11-25] MEDS: *HR* Heparin 5,000 UNIT/ML VIAL SQ SCH (05:58)
[2021-11-25 06:18] LABS: Basophils % 0.4 %; Eosinophils # 0.1 K/mcL (0.0-0.6); Eosinophils % 1.2 %; Hemoglobin 9.1 g/dL (11.5-15.4); Immature Granulocytes % 1.5 % (0-4); Lymphocytes # 0.9 K/mcL (0.6-4.6); Lymphocytes % 12.6 %; Mean Corpuscular HGB Conc 32.5 g/dL (31.6-35.5); Mean Corpuscular Hemoglobin 30.5 pg (28.0-33.3); Mean Platelet Volume 8.8 fL (9.4-12.4); Monocytes # 0.8 K/mcL (0.0-1.3); Monocytes % 11.4 %; Neutrophils # 5.3 K/mcL (1.6-8.9); Platelet Count 260 K/mcL (140-400); Red Blood Count 2.98 M/mcL (3.82-4.97); Red Cell Distribution Width 14.3 % (11.5-14.5); Segmented Neutrophils % 72.9 %; White Blood Count 7.3 K/mcL (4.3-11.1)
[2021-11-25 06:33] LABS: Calcium 8.8 mg/dL (8.6-10.3); Magnesium 1.8 mg/dL (1.6-2.6)
[2021-11-25] MEDS: Cyanocobalamin (B-12) 1,000 MCG TABLET PO SCH (08:46)
[2021-11-25] MEDS: Aspirin Enteric Coated 81 MG Tablet PO SCH (08:46)
[2021-11-25] MEDS: Metoprolol XL (24 HR) Succ 25 MG TAB.ER.24H PO SCH (08:46)
[2021-11-25] MEDS: Furosemide 20 MG TABLET PO SCH (08:46)
[2021-11-25 10:51] VITALS: BP 97/60; PULSE 87; TEMP 98.7
[2021-11-25 11:52] LABS: Influenza A PCR Negative (Negative); Influenza B PCR Negative (Negative); Resp. Syncytial Virus PCR Negative (Negative)
[2021-11-25 11:53] LABS: SARS-CoV-2 by PCR (In House) Negative (Negative)
== END 2021-11-25 14:19 | DRG 280 ==
LOC: EMEROOARM 16:14 → ICNU 16:14 → SUATTDRO 20:37 → ICNU 21:18 → 2ANU 11-17 18:13
PROVIDERS: ADMIT Internal Medicine; ATTEND Pharmacist

== ENCOUNTER 2021-12-13 17:24 | Inpatient (IN) ==
[2021-12-13] MEDS ORDERED: Ondansetron 4 MG/2 ML VIAL IVP ONE (18:12)
[2021-12-13] MEDS ORDERED: Morphine Sulfate 2 MG/ML SYRINGE IVP ONE (18:16)
[2021-12-13 20:37] LABS: Basophils % 0.1 %; Eosinophils % 0.2 %; Hematocrit 30.4 % (35.3-44.9); Hemoglobin 9.6 g/dL (11.5-15.4); Immature Granulocytes % 0.5 % (0-4); Lymphocytes # 0.5 K/mcL (0.6-4.6); Lymphocytes % 5.1 %; Mean Corpuscular HGB Conc 31.6 g/dL (31.6-35.5); Mean Corpuscular Hemoglobin 30.5 pg (28.0-33.3); Mean Corpuscular Volume 96.5 fL (83.0-100.0); Mean Platelet Volume 9.2 fL (9.4-12.4); Monocytes # 0.8 K/mcL (0.0-1.3); Monocytes % 8.3 %; Platelet Count 117 K/mcL (140-400); Red Blood Count 3.15 M/mcL (3.82-4.97); Red Cell Distribution Width 14.2 % (11.5-14.5); Segmented Neutrophils % 85.8 %; White Blood Count 9.3 K/mcL (4.3-11.1)
[2021-12-13 21:00] LABS: Calcium 8.5 mg/dL (8.6-10.3); Potassium 3.2 mEq/L (3.5-5.1)
[2021-12-13] MEDS ORDERED: Potassium Chloride Elixir 20 MEQ/15 ML UDC PO ONE (21:45)
[2021-12-13] MEDS ORDERED: Acetaminophen 325 MG TABLET PO PRN (22:10)
[2021-12-13] MEDS ORDERED: Ondansetron 4 MG/2 ML VIAL IVP PRN (22:10)
[2021-12-13] MEDS ORDERED: Naloxone 0.4 MG/ML INJ IVP PRN (22:10)
[2021-12-13] MEDS ORDERED: *HR* HYDROcodone/Acet 5/325 mg TABLET PO PRN (22:10)
[2021-12-13] MEDS ORDERED: *HR* OxyCODONE Immed Rel 5 MG TABLET PO PRN (22:10)
[2021-12-13] MEDS ORDERED: Melatonin 3 MG TABLET PO PRN (22:10)
[2021-12-13] MEDS: Calcium Gluconate 1gm/50mL 1 GM/50 ML BAG IVPB SCH (23:14)
[2021-12-14] MEDS: Calcium Gluconate 1gm/50mL 1 GM/50 ML BAG IVPB SCH (00:12)
[2021-12-14] MEDS ORDERED: Dextrose Gel 15 GM/37.5 ML TUBE PO PRN ×2 (00:41)
[2021-12-14] MEDS ORDERED: *HR* Dextrose 50 % in Water (Syg) 50 ML SYRINGE IVP PRN (00:41)
[2021-12-14] MEDS ORDERED: D5% in Water 1,000 ML IVC PRN (00:41)
[2021-12-14] MEDS ORDERED: Saliva Stimulant 44.3ml BOTTLE PO PRN (00:42)
[2021-12-14] MEDS ORDERED: *HR* HYDROcodone/Acet 5/325 mg TABLET PO PRN (00:42)
[2021-12-14] MEDS ORDERED: *HR* OxyCODONE Immed Rel 5 MG TABLET PO PRN (00:42)
[2021-12-14] MEDS ORDERED: Acetaminophen IV 1,000 MG/100 ML BAG IVPB ONE (00:52)
[2021-12-14 04:52] LABS: Basophils % 0.3 %; Eosinophils % 0.4 %; Hematocrit 28.8 % (35.3-44.9); Immature Granulocytes % 0.3 % (0-4); Lymphocytes # 1.1 K/mcL (0.6-4.6); Lymphocytes % 15.4 %; Mean Corpuscular HGB Conc 31.3 g/dL (31.6-35.5); Mean Corpuscular Hemoglobin 30.6 pg (28.0-33.3); Mean Platelet Volume 9.1 fL (9.4-12.4); Monocytes # 0.8 K/mcL (0.0-1.3); Monocytes % 11.3 %; Neutrophils # 4.9 K/mcL (1.6-8.9); Platelet Count 102 K/mcL (140-400); Red Blood Count 2.94 M/mcL (3.82-4.97); Red Cell Distribution Width 14.3 % (11.5-14.5); Segmented Neutrophils % 72.3 %; White Blood Count 6.8 K/mcL (4.3-11.1)
[2021-12-14 05:00] LABS: INR 1.1; Prothrombin Time 12.2 Seconds (9.4-12.1)
[2021-12-14 05:01] LABS: Activated Partial Thrombo Time 29.2 Seconds (26.0-36.0)
[2021-12-14 05:17] LABS: Albumin 3.3 g/dL (3.5-5.7); Albumin/Globulin Ratio 1.7 (1.1-2.2); Bilirubin,Total 0.4 mg/dL (0.3-1.0); Calcium 9.1 mg/dL (8.6-10.3); Globulin 1.9 g/dL (2.4-3.5); Magnesium 1.8 mg/dL (1.6-2.6); Total Protein 5.2 g/dL (6.4-8.9)
[2021-12-14] MEDS ORDERED: Ringers Solution, Lactated 1,000 ML IVC SCH (05:45)
[2021-12-14 05:54] VITALS: O2SAT 100
[2021-12-14 07:20] VITALS: BP 107/52; PULSE 64; TEMP 97.8
[2021-12-14] MEDS ORDERED: 0.9 % Sodium Chloride 1,000 ML IVC SCH (08:00)
[2021-12-14] MEDS ORDERED: Aspirin 81 MG TAB.CHEW PO SCH (09:00)
[2021-12-14] MEDS ORDERED: Metoprolol XL (24 HR) Succ 25 MG TAB.ER.24H PO SCH (09:00)
[2021-12-14] MEDS ORDERED: Cholecalciferol (D-3) 1,000 UNIT (25MCG) TABLET PO SCH (09:00)
[2021-12-14] MEDS ORDERED: *HR* Vasopressin 20 UNIT/ML VIAL ONE (09:33)
[2021-12-14] MEDS ORDERED: Haloperidol Lactate 5 MG/ML VIAL IM ONE (14:36)
[2021-12-14] MEDS ORDERED: Melatonin 3 MG TABLET PO SCH (21:00)
[2021-12-14] MEDS ORDERED: Mirtazapine 15 MG TABLET PO SCH (21:00)
[2021-12-15] MEDS ORDERED: Ascorbic Acid 500 MG TABLET PO SCH (09:00)
[2021-12-15] MEDS ORDERED: Cyanocobalamin (B-12) 1,000 MCG TABLET PO SCH (09:00)
== END 2021-12-14 23:59 | disposition other institution (70) | DRG 536 ==
LOC: EMEROOARM 17:24 → 4WAOSI 17:24 → SUATTDRO 22:06 → 4WAOSI 22:07 → SUATTDRO 22:45
PROVIDERS: ADMIT Internal Medicine; ATTEND Family Medicine